=== PATIENT | female | born 1995 | race Caucasian/White ===

== ENCOUNTER 2017-05-12 00:55 | Emergency (ER) | payer BC, MEDICAID ==
[2017-05-12 01:03] VITALS: BP 119/77
--- NOTE | 2017-05-12 01:24 | ER Document Report ---
HPI - HPI Patient complains to provider of: itching rash Onset: Yesterday - evengin Onset/Duration: Persistent, Worse Pain Level: Denies Context: 22 yo female with generalized itching, onset last evening, areas that she scratched are now linear urticarial pink. No fever. URI last week. No chest pain or SOB, no abd pain. Associated Symptoms: None Exacerbated by: Other - scratching Relieved by: Denies Similar symptoms previously: No Recently seen / treated by doctor: No - ROS ROS below otherwise negative: Yes Systems Reviewed and Negative: Yes All other systems reviewed and negative - REPRODUCTIVE Reproductive: REPORTS: : Past Medical History - General Information source: Patient - Social History Smoking Status: Never Smoker Frequency of alcohol use: None Drug Abuse: None Lives with: Family Family History: Reviewed & Not Pertinent - Medical History Notes: [facility] Medical History: Reports: Hx Asthma Surgical Hx: Negative - Immunizations Hx Diphtheria, Pertussis, Tetanus Vaccination: Yes Vertical Provider Document - CONSTITUTIONAL Agree With Documented VS: Yes Exam Limitations: No Limitations General Appearance: No Apparent Distress - INFECTION CONTROL TRAVEL OUTSIDE OF THE [place] IN LAST 30 DAYS: No - HEENT HEENT: Normal ENT Exam - NECK Neck: Supple. negative: Lymphadenopathy-Left, Lymphadenopathy-Right - RESPIRATORY Respiratory: Breath Sounds Normal, No Respiratory Distress O2 Sat by Pulse Oximetry: 99 - CARDIOVASCULAR Cardiovascular: Regular Rate, Regular Rhythm - GI/ABDOMEN Gastrointestinal: Abdomen Soft, Abdomen Non-Tender - NEURO Level of Consciousness: Awake, Alert - DERM Integumentary: Rash - dermatographic pink urticarial rash all places she scratched especially lower back Course - Vital Signs Vital signs: Temp Pulse Resp BP Pulse Ox 97.9 F 71 16 119/77 99 05/12/17 00:58 05/12/17 00:58 05/12/17 00:58 05/12/17 00:58 05/12/17 00:58 Discharge - Discharge Clinical Impression: Pruritus, Dermatographia Condition: Good Disposition: HOME, SELF-CARE Instructions: Acid-Suppressing Medication ([facility]), Acute Urticaria ([facility]), Use of Diphenhydramine, Steroid Medication Additional Instructions: cool compress beandryl cream topical over the counter pepcid 20mg twice a day this week continue benadryl 50mg every 4 hours see the parquet floor layer's helper if persists steroid until its gone Prescriptions: Prednisone [Deltasone 10 mg Tablet] 10 mg PO ASDIR PRN #15 tablet PRN Reason: Referrals: HEATH HERNANDEZ, [ACTIVE STAFF] - Follow up as needed
[2017-05-12] MEDS ORDERED: FAMOTIDINE 20 MG TABLET PO ONE (01:30)
[2017-05-12] MEDS ORDERED: PREDNISONE 20 MG TABLET PO ONE (01:30)
== END 2017-05-12 01:38 | disposition home or self-care (01) ==
LOC: ER 00:55
DX: L50.3 Dermatographic urticaria (principal); J45.909 Unspecified asthma, uncomplicated
CPT/HCPCS: 99282; J7512

== ENCOUNTER 2017-05-22 21:00 | Emergency (ER) | payer BC ==
--- NOTE | 2017-05-22 22:36 | ER Document Report ---
HPI - HPI Patient complains to provider of: rash Pain Level: 0 Context: Patient is a 22-year-old female who presents emergency department complaining of welts that have been present for the past 2 weeks. Occasionally on her chest and abdomen. Admits to small areas occasionally on her face but rarely. patient states that she was evaluated here approximately 2 weeks ago initiated on prednisone taper, Pepcid, Benadryl and Claritin. She states that the Benadryl relieves the itching and allows her to sleep but otherwise she denies any improvement in her rash. States that she did go to [facility] last week where she received a shot of Decadron which did not really improve her symptoms at all either except for the itching. Patient states that she did have symptoms like this over a year ago. Otherwise she denies any new household products, foods or risk factors for an allergic reaction. She denies any recent travel, sick exposure, outdoor activities with concern for tick exposure. Otherwise she feels fine she denies any fever, chills, lethargy, joint pain, body aches. States that the areas are mostly on her legs Family history significant for psoriasis - REPRODUCTIVE Reproductive: REPORTS: : Past Medical History - Social History Smoking Status: Never Smoker Family History: Reviewed & Not Pertinent Pulmonary Medical History: Reports: Hx Asthma Renal/ Medical History: Denies: Hx Peritoneal Dialysis - Immunizations Hx Diphtheria, Pertussis, Tetanus Vaccination: Yes Vertical Provider Document - CONSTITUTIONAL Agree With Documented VS: Yes Notes: PHYSICAL EXAM GENERAL: Alert, interacts well. HEAD: Normocephalic, atraumatic. EYES: Pupils equal, round, and reactive to light. Extraocular movements intact. ENT: Oral mucosa moist, tongue midline. LUNGS: Clear to auscultation bilaterally, no wheezes, rales, or rhonchi. No respiratory distress. HEART: Regular rate and rhythm. No murmurs, gallops, or rubs. ABDOMEN: Soft, nondistended, nontender. No guarding, rebound, or rigidity.. Bowel sounds present in all 4 quadrants. EXTREMITIES: Moves all 4 extremities spontaneously. No edema, radial and dorsalis pedis pulses 2/4 bilaterally. No cyanosis. NEUROLOGICAL: Alert and oriented x4. Normal speech. PSYCH: Normal affect, normal mood. SKIN: Warm, dry, normal turgor. Several well demarcated erythematous, raised plaques without overlying scales on her medial left thigh, lateral right leg primarily with evidence of scratching and irritation no evidence of malar rash - INFECTION CONTROL TRAVEL OUTSIDE OF THE [place] IN LAST 30 DAYS: No - RESPIRATORY O2 Sat by Pulse Oximetry: 100 Course - Re-evaluation Re-evalutation: 05/22/17 22:46 Patient is a 22-year-old female who is hemodynamically stable, no acute distress and afebrile. Presentation is likely consistent with psoriasis given family history and presentation. Given patient has not had any improvement with inflammatory treatments with antihistamines and steroids, recommendTaking the Benadryl as needed for itching otherwise to discontinue the other products. Educated patient on utilizing topical hydration and to decrease itching to help allow these areas heal. Discussed with her to follow-up with [facility] next week for follow-up and possible allergy/dermatology referral if needed. - Vital Signs Vital signs: Temp Pulse Resp BP Pulse Ox 98.2 F 73 20 124/80 100 05/22/17 21:12 05/22/17 21:12 05/22/17 21:12 05/22/17 21:12 05/22/17 21:12 Discharge - Discharge Clinical Impression: Rash Condition: Good Disposition: HOME, SELF-CARE Instructions: Psoriasis ([facility]) Additional Instructions: -Hydration and lotions are valuable and inexpensive adjuncts to psoriasis treatment. Keeping psoriatic skin soft and moist minimizes the symptoms of itching and tenderness. -Please follow-up with [facility] who has the capacity to do allergy testing as needed and possible for dermatology referral [facility] - Follow up in 3-5 days
[2017-05-22 23:16] VITALS: BP 116/72
== END 2017-05-22 23:16 | disposition home or self-care (01) ==
LOC: ER 21:00
DX: R21 Rash and other nonspecific skin eruption (principal)
CPT/HCPCS: 99282